=== PATIENT | female | born 1940 | race Caucasian/White ===

== ENCOUNTER 2020-07-27 07:48 | Outpatient (CLI) | payer MEDICARE, OTHER, SELFPAY ==
--- NOTE | ~2020-07-27 | XR_ITS ---
EXAMINATION: XR heel RT min 2V DATE: 07/27/2020 08:35 INDICATION: Right foot pain. TECHNIQUE: 2 views of right calcaneus on 3 radiographs were obtained. COMPARISON: None. FINDINGS: Bone alignment is normal. No fracture. Joint spaces are normal. There are enthesophytes at the posterior and plantar aspects of calcaneal tuberosity. IMPRESSION: 1. No fracture. Reviewed, dictated and finalized at location A. IMPRESSION: 1. No fracture.
[2020-07-27 08:20] LABS: Basophils Percent Auto 0.5 % (0.2-1.2); Eosinophils Absolute Auto 0.1 K/mm3 (0-0.3); Eosinophils Percent Auto 1.4 % (0-4.4); Hemoglobin 13.9 g/dL (12.0-15.0); Immature Granulocyte Absolute 0.02 K/mm3 (0.00-0.031); Immature Granulocyte Percent A 0.4 % (0-0.5); Lymphocytes Absolute Auto 1.59 K/mm3 (0.9-3.2); Lymphocytes Percent Auto 28.3 % (18.3-44.2); Mean Corpuscular HGB Conc 33.1 g/dl (32-36); Mean Corpuscular Hemoglobin 29.6 pg (26-34); Mean Corpuscular Volume 89.4 fl (80-100); Mean Platelet Volume 9.6 fl (7.4-10.4); Monocytes Absolute Auto 0.6 K/mm3 (0.1-0.6); Monocytes Percent Auto 9.8 % (2.6-8.5); Neutrophils Absolute Auto 3.3 K/mm3 (1.3-6.7); Neutrophils Percent Auto 59.6 % (45.5-73.1); Platelet Count Result 233 k/mm3 (150-375); Red Cell Distribution Width 13.8 % (11.5-14.5); White Blood Count 5.6 K/mm3 (4.5-10.0)
[2020-07-27 08:32] LABS: Alanine Aminotransferase 22 U/L (4-35); Albumin Level 4.4 g/dL (3.5-5.1); Alkaline Phosphatase 66 U/L (38-126); Anion Gap 6 mmol/L (8-16); Aspartate Amino Transferase 27 U/L (14-36); Bilirubin,Total 0.5 mg/dL (0.2-1.3); Blood Urea Nitrogen 28 mg/dL (7-17); Calcium 10.9 mg/dL (8.4-10.2); Carbon Dioxide 30 mmol/L (22-30); Chloride 105 mmol/L (98-107); Cholesterol 223 mg/dL (0-200); Estimated Glomerular Filt Rate > 60; Glucose 105 mg/dL (65-105); HDL Direct 67 mg/dL; Potassium 4.4 mmol/L (3.4-5.0); Sodium 141 mmol/L (137-145); Triglycerides 129 mg/dL (<150)
[2020-07-27 08:45] LABS: LDL Cholesterol Direct 100 mg/dL
[2020-07-27 09:01] LABS: Vitamin D 25 Hydroxy 32.7 ng/mL
[2020-07-27 09:38] LABS: Folic Acid 6.2 ng/mL (2.76->20)
[2020-07-27 11:49] LABS: Add Urine Microscopic? YES; Appearance Urine Clear (Clear); Bacteria Urine Trace /hpf; Bilirubin Urine Negative (Negative); Blood Urine 1+ (Negative); Color Urine Yellow (Yellow); Glucose Urine UA Negative (Negative); Ketones Urine Negative (Negative); Leukocyte Esterase Ur Trace LEU/UL (NEGATIVE); Mucus Urine Rare /lpf; Nitrate Urine Negative (Negative); Protein Urine Negative (Negative); RBC Urine 0-2 /hpf (0-2); Specific Grav Ur 1.023 (1.001-1.035); Squamous Epithelial Cell Urine Rare /hpf (Few); Transitional Epi Cells Urine Rare /hpf (None Seen); Urobilinogen Urine Negative mg/dL (<2.0)
[2020-07-27 18:03] LABS: Parathyroid Intact 57.2 pg/mL (7.5-53.5)
== END 2020-07-27 07:49 | disposition home or self-care (01) ==
PROVIDERS: PCP Nurse Practitioner Family; Visit Provider Nurse Practitioner Family
DX: M79.671 Pain in right foot (principal); R53.83 Other fatigue; E66.9 Obesity, unspecified; M81.0 Age-related osteoporosis without current pathological fracture; E83.52 Hypercalcemia
CPT/HCPCS: 36415; 73650; 80048; 80061; 80076; 81001; 82306; 82607; 82746; 83970; 84443; 85025

== ENCOUNTER 2020-08-15 08:35 | Outpatient (CLI) | payer MEDICARE, OTHER, SELFPAY ==
[2020-08-15 10:07] LABS: Creatinine Urine 55.7 mg/dL
[2020-08-15 11:00] LABS: Creatinine 24 Hour Urine 0.8 gm/24 (0.8-1.8); Total Volume 24 Hour Urine 1550 ml
[2020-08-19 07:32] LABS: Total Volume 1600 mL; Urine Calcium 14.1 mg/dL
== END 2020-08-15 08:36 | disposition home or self-care (01) ==
PROVIDERS: PCP Nurse Practitioner Family; Visit Provider Internal Medicine Endocrinology, Diabetes & Metabolism
DX: E21.3 Hyperparathyroidism, unspecified (principal); E83.52 Hypercalcemia
CPT/HCPCS: 81050; 82340; 82570

== ENCOUNTER 2020-09-22 08:07 | Outpatient (CLI) | payer MEDICARE, OTHER, SELFPAY ==
--- NOTE | ~2020-09-22 | DEXA_ITS ---
Bone Density Report Name: Jazz Pierson Age: 79 Sex: Female Ethnicity: White Date of : 1940 Indication: osteopenia; monitoring treatment; hyperparathyroidism; height loss; prior fracture; postmenopausal Referring Provider: Loida Shea Study: Bone densitometry was performed. Exam Date: September 22, 2020 Accession number: [id number] Bone Density: Region BMD T-score Z-score Classification AP Spine (L1, L4) 0.975 -0.6 2.2 Normal Femoral Neck (Left) 0.764 -0.8 1.6 Normal Total Hip (Left) 0.803 -1.1 1.0 Osteopenia Total Hip Bilateral Avg 0.809 -1.1 1.1 Osteopenia Femoral Neck (Right) 0.826 -0.2 2.2 Normal Total Hip (Right) 0.815 -1.0 1.1 Normal World Health Organization criteria for BMD impression classify patients as: Normal (T-score at or above -1.0), Osteopenia (T-score between -1.0 and -2.5), or Osteoporosis (T-score at or below -2.5). 10-year Fracture Risk: FRAX not reported because: Treated for osteoporosis Previous Exams: Region Exam Age BMD T-score BMD Change BMD Change Date g/cm2 vs Baseline vs Previous AP Spine(L1, L4) 09/22/2020 79 0.975 -0.6 0.092(10.5%)* 0.008(0.8%) 02/06/2017 76 0.967 -0.6 0.085(9.6%)* 0.085(9.6%)* 12/01/2014 74 0.882 -1.4 Total Hip(Left) 09/22/2020 79 0.803 -1.1 -0.033(-3.9%)* -0.025(-3.0%) 02/06/2017 76 0.828 -0.9 -0.008(-0.9%) -0.008(-0.9%) 12/01/2014 74 0.836 -0.9 Total Hip(Right) 09/22/2020 79 0.815 -1.0 0.007(0.9%) 0.028(3.6%)* 02/06/2017 76 0.787 -1.3 -0.021(-2.5%) -0.021(-2.5%) 12/01/2014 74 0.807 -1.1 *Denotes significance at 95% confidence level, LSC for AP Spine = 0.022 g/cm2, LSC for Total Hip = 0.027 g/cm2 Clinical Information Provided by Patient: Has had a low trauma fracture Is being treated for osteoporosis Has used the following medications: Reclast (i.e. zoledronate) Has the following medical conditions: Hyperparathyroidism Patient maximum height was 67 Menopause Age: 40 No regular weight bearing exercise Drinks caffeinated beverages Onset of menses at age 10 Number of children 3 Impression: The patient has low bone mass, based on the Left Total Hip T-score. The patient has risk factors, including: previous fracture. No significant bone loss was observed. Discussion: PATIENT UNDER TREATMENT WITH NO SIGNIFICANT BMD LOSS SINCE LAST EXAM. In an untreated patient, BMD typically declines with age. A lack of decline or gain is usually a sign th
== END 2020-09-22 08:08 | disposition home or self-care (01) ==
LOC: ANHIMG 08:09
PROVIDERS: PCP Nurse Practitioner Family; Visit Provider Internal Medicine Endocrinology, Diabetes & Metabolism
DX: E21.3 Hyperparathyroidism, unspecified (principal); Z78.0 Asymptomatic menopausal state; M85.852 Other specified disorders of bone density and structure, left thigh
CPT/HCPCS: 77080

== ENCOUNTER 2021-02-13 14:11 | Outpatient (CLI) | payer MEDICARE, OTHER, SELFPAY ==
--- NOTE | ~2021-02-13 | US_ITS ---
EXAMINATION: US venous doppler [facility] EXAM DATE: 02/13/2021 14:39 INDICATION: R60.0 - Localized edema. TECHNIQUE: Multiple grayscale, color flow and Doppler images of the left lower extremity deep venous system were obtained and reviewed. There is no prior study for comparison. FINDINGS: The left common femoral, femoral and profunda veins demonstrate normal color flow, respirat ory variation, augmentation and compressibility. Compressibility, color flow confirmed within the le ft popliteal, posterior tibial, peroneal, and greater saphenous veins. IMPRESSION: 1. No left lower extremity deep venous thrombosis. Reviewed, dictated and finalized at location B. TENDER
== END 2021-02-13 14:12 | disposition home or self-care (01) ==
LOC: ANHIMG 14:13
PROVIDERS: PCP Nurse Practitioner Family; Visit Provider Nurse Practitioner Family
DX: R60.0 Localized edema (principal)
CPT/HCPCS: 93971

== ENCOUNTER 2022-08-07 10:56 | Outpatient (CLI) | payer MEDICARE, SELFPAY ==
--- NOTE | 2022-08-07 11:13 | ECG_ITS ---
Measurements Intervals [place] Rate: 94 P: DC: 0 QRS: 8 QRSD: 77 T: 38 QT: 362 QTc: 454 Interpretive Statements ATRIAL FIBRILLATION WITH ABERRANT CONDUCTION OR VENTRICULAR PREMATURE COMPLEXES ABNORMAL RHYTHM ECG NO PREVIOUS ECG AVAILABLE FOR COMPARISON Electronically Signed On 08-07-2022 16:20:26 CDT by Marta Shultz M.D.
== END 2022-08-07 10:57 | disposition home or self-care (01) ==
PROVIDERS: PCP Nurse Practitioner Family; Visit Provider Nurse Practitioner Family
DX: I49.9 Cardiac arrhythmia, unspecified (principal); R94.31 Abnormal electrocardiogram [ECG] [EKG]
CPT/HCPCS: 93005

== ENCOUNTER 2022-10-09 07:10 | Outpatient (CLI) | payer MEDICARE, SELFPAY ==
--- NOTE | ~2022-10-09 | NM_ITS ---
EXAMINATION: NM omid stress w perfusion DATE: 10/09/2022 09:50 INDICATION: Other chest pain. Chest pressure. TECHNIQUE: Rest images were obtained following intravenous administration of 12.4 mCi Tc99m tetrofosm in (Myoview). The patient was infused intravenously with Lexiscan (regadenoson). Then, 34.7 mCi Tc99m tetrofosmin (Myoview) was administered intravenously, and stress images were obtained. Data was alysa nstructed into short axis and horizontal and vertical long axis SPECT images. Gated SPECT images were also obtained. COMPARISON: None. FINDINGS: There is no definite reversible or fixed perfusion abnormality to suggest ischemia or infar ction. There is no segmental wall motion abnormality. Left ventricular ejection fraction measures > 70%. IMPRESSION: 1. No definite ischemia or infarct. 2. Normal left ventricular ejection fraction measuring >70%. Reviewed, dictated and finalized at location A.
--- NOTE | 2022-10-09 07:31 | EST_ITS ---
Patient Info Name: Jazz Pierson Age: 81 years : 1940 Gender: Female Ht: 65 in Wt: 205 lbs BSA: 2.10 m2 Exam Date: 10/09/2022 8:18 AM Exam Location: [facility] Stress Patient Status: Outpatient Admit Date: 10/09/2022 Staff Ordering Physician: Kirk Flores DO Attending Provider: Kirk Flores DO Exercise Technologist: Ashly Gabriel RDCS Exercise Physician: Kirk Flores DO Exam Type: CA stress omid w NM Study Info Indications R07.9 - Chest pain, unspecified R06.00 - Dyspnea, unspecified A regadenoson stress test was performed. Summary 1. 1. Negative lexiscan stress test for ischemic ST changes by ECG criteria. 2. 2. Baseline hypertension. 3. 3. Nuclear scan to follow and will be reported separately. Please correlate with it. 4. 4. Patient informed of the above results. Protocol: Lexiscan Stress ECG Details Stage: REST Duration (min): 0 min : 43 sec HR (bpm): 64 SBP (mmHg): 152 DBP (mmHg): 86 Stage: REST Duration (min): 4 min : 36 sec HR (bpm): 66 SBP (mmHg): 152 DBP (mmHg): 86 Stage: STAGE 1 Duration (min): 1 min : 0 sec HR (bpm): 80 SBP (mmHg): 135 DBP (mmHg): 89 Stage: RECOVERY Duration (min): 1 min : 0 sec HR (bpm): 85 SBP (mmHg): 148 DBP (mmHg): 88 Stage: RECOVERY Duration (min): 2 min : 0 sec HR (bpm): 78 SBP (mmHg): 148 DBP (mmHg): 88 Stage: RECOVERY Duration (min): 3 min : 0 sec HR (bpm): 79 SBP (mmHg): 125 DBP (mmHg): 84 Stage: RECOVERY Duration (min): 3 min : 19 sec HR (bpm): 75 SBP (mmHg): 125 DBP (mmHg): 84 Rest HR: 66 bpm Peak HR: 87 bpm Rest Sys BP: 152 mmHg Peak Sys BP: 148 mmHg Max Pred HR: 137 bpm % Max Pred HR: 64 % Target HR: 116 bpm Max RPP: 12,876 bpm*mmHg Termination Reason: Completed protocol Cardiac Symptoms: Shortness of breath Total Time: 1 min : 0 sec Rest Ortez BP: 86 mmHg Peak Ortez BP: 88 mmHg Total Dose: 0.4 mg Resting ECG Sinus rhythm. Stress ECG No ST changes. Arrhythmias None. Report Signatures
--- NOTE | 2022-10-09 07:31 | ECHO_ITS ---
Patient Info Name: Jazz Pierson Age: 81 years : 1940 Gender: Female Ht: 65 in Wt: 205 lbs BSA: 2.10 m2 HR: 61 bpm BP: 157 / 80 mmHg Technical Quality: Fair Exam Date: 10/09/2022 9:30 AM Exam Location: [facility] Pulmonary Patient Status: Outpatient Admit Date: 10/09/2022 Staff Ordering Physician: Kirk Flores DO Crater And Packer: Ann Torres RDCS Attending Provider: Kirk Flores DO Referring Physician: Mark CHAPMAN; Exam Type: CA echo dop color flow w con Study Info Indications - chest pain Complete two-dimensional, color flow and Doppler transthoracic echocardiogram is performed with contrast to opacify the left ventricle and to improve the deliniation of the left ventricle endocardial borders. Contrast/Agitated Saline Contrast/Ag. Saline: Definity Amount: 2.00 ml Administered By: Ann Torres [facility] Existing IV Access: Yes New IV Access: Left Site Condition: IV removed Summary 1. Definity contrast administered improved wall motion interpretation. 2. Left ventricular chamber dimension is normal. 3. Left ventricular systolic function is normal, estimated at 60-65%. 4. The left ventricular diastolic function is grade I diastolic dysfunction. 5. E/e' 9 is minimally elevated. 6. There is moderate aortic valve sclerosis. 7. There is mild to moderate aortic valve stenosis with a peak velocity of 218.12 cm/s, mean gradient of 11 mmHg, and aortic valve area of 1.59 cm2. 8. There is trace aortic valve regurgitation. 9. The mitral valve has moderately calcified annulus. 10. There is mild mitral valve regurgitation. 11. There is trace tricuspid valve regurgitation. 12. No pulmonary hypertension, estimated pulmonary arterial systolic pressure is 30 mmHg. 13. There is trace pulmonic regurgitation. Left Ventricle E/e' 9 is minimally elevated. Definity contrast administered improved wall motion interpretation. Left ventricular chamber dimension is normal. Left ventricular systolic function is normal, estimated at 60-65%. The left ventricular diastolic function is grade I diastolic dysfunction. Right Ventricle Right ventricular chamber dimension is normal. Right ventricular systolic function is normal. Left Atria Left atrial chamber dimension is normal. Right Atria Right atrial chamber dimension is normal. Aortic Valve The aortic valve is trileaflet. There is moderate aortic valve sclerosis. There is mild to moderate aortic valve stenosis with a peak velocity of 218.12 cm/s, mean gradient of 11 mmHg, and aortic valve area of 1.59 cm2. There is trace aortic valve regurgitation. Pulmonic Valve There is trace pulmonic regurgitation. Mitral Valve The mitral valve has moderately calcified annulus. There is no mitral valve stenosis. There is mild mitral valve regurgitation. Tricuspid Valve There is trace tricuspid valve regurgitation. No pulmonary hypertension, estimated pulmonary arterial systolic pressure is 30 mmHg. Pericardium/Pleural There is no pericardial effusion. Inferior Vena Cava Normal inferior vena cava with >50% collapse upon inspiration consistent with normal right atrial pressure, 5 mmHg. Aorta The aortic root size at the sinus of Valsalva is normal. Left Ventricular Outflow Tract Name Value Normal LVOT 2D LVOT Diameter
[2022-10-09] MEDS: PERFLUTREN LIPID MICROSPHERES 1.5 ML VIAL DILUTED TO 10 ML TOTAL VOLUME IV PUSH (10:15)
--- NOTE | 2022-10-09 11:38 | IVDEFINITY ---
Prior to administration of IV Definity the patient was educated on the risks and benefits of the imaging enhancing agent including potential adverse side effects. The patient verbalized understanding. Allergies were verified. No exclusion criteria were identified and at least one of the following inclusion criteria were met: 1) physician request, 2) patient technically difficult to image (per the [place] [employer] of Echocardi[employer] guidelines of two or more segments not discernable within the apical view), or 3) questionable left ventricular function. ?
== END 2022-10-09 07:11 | disposition home or self-care (01) ==
PROVIDERS: PCP Nurse Practitioner Family; Visit Provider Internal Medicine Cardiovascular Disease
DX: R06.09 Other forms of dyspnea (principal); R07.89 Other chest pain; I34.0 Nonrheumatic mitral (valve) insufficiency
CPT/HCPCS: 78452; 93017; A9502; C8929; J2785; Q9957

== ENCOUNTER 2022-12-06 11:02 | Outpatient (CLI) | payer MEDICARE, SELFPAY ==
[2022-12-06 13:55] LABS: Albumin Level 4.5 g/dL (3.5-5.1); Anion Gap 9 mmol/L (8-16); Blood Urea Nitrogen 18 mg/dL (7-17); Calcium 10.8 mg/dL (8.4-10.2); Carbon Dioxide 24 mmol/L (22-30); Chloride 105 mmol/L (98-107); Estimated Glomerular Filt Rate > 60; Glucose 106 mg/dL (65-110); Potassium 4.3 mmol/L (3.4-5.0); Sodium 138 mmol/L (137-145)
[2022-12-06 14:01] LABS: Vitamin D 25 Hydroxy 33.9 ng/mL
[2022-12-06 14:03] LABS: Parathyroid Intact 53.5 pg/mL (7.5-53.5)
[2022-12-10 23:34] LABS: Vitamin D 1,25 (OH)2 Total 75 pg/mL (18-72); Vitamin D2 1,25 (OH)2 <8 pg/mL; Vitamin D3 1,25 (OH)2 75 pg/mL
[2022-12-15 17:17] LABS: Parathyroid Hormone Related Pr 10 pg/mL (11-20)
== END 2022-12-06 11:03 | disposition home or self-care (01) ==
LOC: ANHWCLAB 11:02
PROVIDERS: PCP Nurse Practitioner Family; Visit Provider Internal Medicine Endocrinology, Diabetes & Metabolism
DX: E67.3 Hypervitaminosis D (principal); M85.80 Other specified disorders of bone density and structure, unspecified site; E83.52 Hypercalcemia
CPT/HCPCS: 36415; 80069; 82306; 82652; 83519; 83970

== ENCOUNTER → 2022-12-12 10:37 | Outpatient (CLI) | payer MEDICARE, SELFPAY ==
--- NOTE | ~2022-12-12 | DEXA_ITS ---
Bone Density Report Name: KYLIE AMARO Age: 82 Sex: Female Ethnicity: White Date of : 1940 Indication: postmenopausal; screening for osteoporosis; height loss; rheumatoid arthritis; Referring Provider: Shelli Ko Study: Bone densitometry was performed. Exam Date: December 12, 2022 Accession number: [id number] Bone Density: Region BMD T-score Z-score Classification AP Spine (L1-L4) 1.297 2.3 5.1 Normal Femoral Neck (Left) 0.826 -0.2 2.3 Normal Total Hip (Left) 0.845 -0.8 1.5 Normal Femoral Neck (Right) 0.838 -0.1 2.4 Normal Total Hip (Right) 0.849 -0.8 1.5 Normal Total Hip Mean 0.847 -0.8 1.5 Normal World Health Organization criteria for BMD impression classify patients as: Normal (T-score at or above -1.0), Osteopenia (T-score between -1.0 and -2.5), or Osteoporosis (T-score at or below -2.5). 10-year Fracture Risk: FRAX not reported because: All T-scores for Spine Total, Hip Total, Femoral Neck at or above -1.0 Clinical Information Provided by Patient: Has rheumatoid arthritis Has used the following medications: Vitamin D Patient maximum height was 67 Menopause Age: 38 No regular weight bearing exercise Drinks caffeinated beverages Onset of menses at age 10 Number of children 3 Impression: The patient has normal bone mass. Discussion: BONE DENSITY IS ABOVE THE MINIMUM DESIRABLE LEVEL AT ALL SKELETAL SITES TESTED. This patient?s bone mineral density is above the minimum desirable level (T-score -1.0 or better) at all sites measured. The patient should follow a healthful lifestyle (good nutrition with adequate calcium and vitamin D, and appropriate weight-bearing exercise). Follow-Up: Consider repeating this study in 5 years or sooner if there is some new clinical indication. Reported by: CAROL on 12/12/2022 10:58:00 AM. Reviewed, dictated and finalized at location AJuan Luis REYNOSO
== END ==
PROVIDERS: PCP Internal Medicine Endocrinology, Diabetes & Metabolism; Visit Provider Internal Medicine Endocrinology, Diabetes & Metabolism
DX: M85.88 Other specified disorders of bone density and structure, other site (principal); E67.3 Hypervitaminosis D; E83.52 Hypercalcemia
CPT/HCPCS: 77080

== ENCOUNTER 2023-07-10 08:27 | Outpatient (CLI) | payer MEDICARE, SELFPAY ==
[2023-07-10 09:22] LABS: Alanine Aminotransferase 20 U/L (6-35); Albumin Level 4.8 g/dL (3.5-5.1); Alkaline Phosphatase 79 U/L (38-126); Aspartate Amino Transferase 31 U/L (14-36); Bilirubin,Total 0.9 mg/dL (0.2-1.3); Cholesterol 209 mg/dL (0-200); HDL Direct 58 mg/dL; Triglycerides 121 mg/dL (<150)
[2023-07-10 09:23] LABS: Albumin Level 4.8 g/dL (3.5-5.1); Anion Gap 7 mmol/L (4-12); Blood Urea Nitrogen 18 mg/dL (7-17); Calcium 10.1 mg/dL (8.4-10.2); Carbon Dioxide 32 mmol/L (22-30); Chloride 103 mmol/L (98-107); Estimated Glomerular Filt Rate > 60; Glucose 105 mg/dL (65-110); Potassium 4.2 mmol/L (3.4-5.0); Sodium 142 mmol/L (137-145)
[2023-07-10 09:33] LABS: LDL Cholesterol Direct 129 mg/dL
[2023-07-10 09:34] LABS: Parathyroid Intact 123.4 pg/mL (7.5-53.5)
[2023-07-10 09:45] LABS: Vitamin D 25 Hydroxy 46.2 ng/mL
[2023-07-11 12:54] LABS: Ionized Calcium 5.2 mg/dL (4.7-5.5)
[2023-07-12 02:29] LABS: Protein, Total 7.1 g/dL (6.1-8.1)
[2023-07-12 08:19] LABS: Creatinine, Random Urine 137 mg/dL (20-275); Total Protein/Creatinine Ratio 190 mg/g creat (24-184)
[2023-07-12 10:24] LABS: Albumin 4.2 g/dL (3.8-4.8); Alpha 1 Globulin 0.3 g/dL (0.2-0.3); Alpha 2 Globulin 0.7 g/dL (0.5-0.9); Beta 1 Globulin 0.5 g/dL (0.4-0.6)
[2023-07-15 10:32] LABS: Vitamin D 1,25 (OH)2 Total 57 pg/mL (18-72); Vitamin D2 1,25 (OH)2 <8 pg/mL; Vitamin D3 1,25 (OH)2 57 pg/mL
== END 2023-07-10 08:28 | disposition home or self-care (01) ==
PROVIDERS: PCP Nurse Practitioner Family; Visit Provider Internal Medicine Endocrinology, Diabetes & Metabolism
DX: E83.52 Hypercalcemia (principal); I48.91 Unspecified atrial fibrillation; R53.83 Other fatigue; R79.89 Other specified abnormal findings of blood chemistry
CPT/HCPCS: 36415; 80061; 80069; 80076; 82306; 82330; 82570; 82652; 83970; 84155; 84156; 84165; 84166

== ENCOUNTER 2023-07-12 09:32 | Outpatient (CLI) | payer MEDICARE, SELFPAY ==
[2023-07-12 10:43] LABS: Creatinine Urine 94.3 mg/dL
[2023-07-12 11:56] LABS: Creatinine 24 Hour Urine 0.8 gm/24 (0.8-1.8); Total Volume 24 Hour Urine 900 ml
== END 2023-07-12 09:33 | disposition home or self-care (01) ==
PROVIDERS: PCP Nurse Practitioner Family; Visit Provider Internal Medicine Endocrinology, Diabetes & Metabolism
DX: E83.52 Hypercalcemia (principal)
CPT/HCPCS: 81050; 82340; 82570

== ENCOUNTER 2024-01-22 08:27 | Outpatient (CLI) | payer MEDICARE, SELFPAY ==
--- NOTE | 2024-01-22 09:04 | ECHO_ITS ---
Patient Info Name: Jazz Pierson Age: 83 years : 1940 Gender: Female Ht: 65 in Wt: 190 lbs BSA: 2.02 m2 HR: 88 bpm BP: 136 / 81 mmHg Heart Rhythm: Atrial Fibrillation Technical Quality: Fair Exam Date: 01/22/2024 9:28 AM Exam Location: Echo Lab Patient Status: Outpatient Admit Date: 01/22/2024 Staff Ordering Physician: Kirk Flores DO Process Equipment Operator: Yung Ragsdale RDCS Attending Provider: Kirk Flores DO Referring Physician: Mark CHAPMAN; Exam Type: CA echo doppler color flow Study Info Indications I35.0 - Nonrheumatic aortic (valve) stenosis Complete two-dimensional, color flow and Doppler transthoracic echocardiogram is performed. Summary 1. Complete two-dimensional, color flow and Doppler transthoracic echocardiogram is performed. 2. Left ventricular chamber dimension is normal. 3. Left ventricular systolic function is normal, estimated at 65-70%. 4. The left ventricular diastolic function is abnormal. 5. E/e' 14 is mildly elevated. 6. Atrial fibrillation. 7. Left atrial chamber dimension is moderately enlarged. 8. Right atrial chamber dimension is moderately enlarged. 9. There is moderate aortic valve sclerosis. 10. There is mild aortic valve stenosis with a peak velocity of 245 cm/s, mean gradient of 8 mmHg, and aortic valve area of 1.6 cm2. 11. There is mild aortic valve regurgitation. 12. The mitral valve has severely calcified annulus. 13. There is mild to moderate mitral valve regurgitation. 14. There is mild to moderate tricuspid valve regurgitation. 15. Mild pulmonary hypertension, estimated pulmonary arterial systolic pressure is 42 mmHg. 16. There is trace pulmonic regurgitation. Left Ventricle E/e' 14 is mildly elevated. Atrial fibrillation. Left ventricular chamber dimension is normal. Left ventricular systolic function is normal, estimated at 65-70%. The left ventricular diastolic function is abnormal. Right Ventricle Right ventricular chamber dimension is normal. Right ventricular systolic function is normal. Left Atria Left atrial chamber dimension is moderately enlarged. Right Atria Right atrial chamber dimension is moderately enlarged. Aortic Valve The aortic valve is trileaflet. There is moderate aortic valve sclerosis. There is mild aortic valve stenosis with a peak velocity of 245 cm/s, mean gradient of 8 mmHg, and aortic valve area of 1.6 cm2. There is mild aortic valve regurgitation. Pulmonic Valve There is trace pulmonic regurgitation. Mitral Valve The mitral valve has severely calcified annulus. There is no mitral valve stenosis. There is mild to moderate mitral valve regurgitation. Tricuspid Valve There is mild to moderate tricuspid valve regurgitation. Mild pulmonary hypertension, estimated pulmonary arterial systolic pressure is 42 mmHg. Pericardium/Pleural There is no pericardial effusion. Inferior Vena Cava Normal inferior vena cava with >50% collapse upon inspiration consistent with normal right atrial pressure, 5 mmHg. Aorta The aortic root size at the sinus of Valsalva is normal. Left Ventricular Outflow Tract Name Value Normal LVOT 2D LVOT Diameter 2.0 cm LVOT Doppler LVOT Peak Gradient 4 mmHg LVOT Mean Gradient 2 mmHg LVOT VTI 19 cm LVOT VTI/AV VTI Ratio 0.5 LVOT Stroke Volume 59 ml LVOT CO 4.2 l/min LVOT CI 2.1 l/min/m2 Pulmonic Valve Name Value Normal PV Doppler PV Peak Gradient 2 mmHg PV Regurgitation Doppler OR Peak End Diastolic Velocity 116 cm/s Mitral Valve Name Value Normal MV Doppler MV Decel [place] 627 cm/s2 MV PHT 55 ms MV Area (PHT) 4.0 cm2 4.0-5.0 MV Diastolic Function MV E Peak Velocity 119 cm/s MV A Peak Velocity 1 cm/s MV E/A 193.0 MV Decel Time 190 ms Tricuspid Valve Name Value Normal TV Regurgitation Doppler TR Peak Velocity 304 cm/s TR Peak Gradient 37 mmHg Estimated PAP/RSVP RA Pressure 5 mmHg <=5 PA Systolic Pressure 42 mmHg <36 RV Systolic Pressure 42 mmHg <36 Aorta Name Value Normal Ascending Aorta Ao Root Diameter (MM) 2.7 cm Ao Root Diam Index (MM) 1.3 cm/m2 Aortic Valve Name Value Normal AV Doppler AV Peak Velocity 245 cm/s AV Peak Gradient 24 mmHg AV Mean Gradient 8 mmHg AV VTI 37 cm AV Area (Cont Eq VTI) 1.6 cm2 >=3.0 AV Area (Cont Eq Edgar) 1.3 cm2 AV Regurgitation 2D LVOT Area 3.1 cm2 AV Regurgitation Doppler AR Decel Time 2,282 ms AR Decel [place] 177 cm/s2 AR PHT 662 ms Ventricles Name Value Normal LV Dimensions 2D/MM IVS Diastolic Thickness (2D) 1.0 cm 0.6-1.0 IVS Diastole Thickness (MM) 0.9 cm 0.6-0.9 LVID Diastole (2D) 4.6 cm 3.8-5.2 LVID Diastole (MM) 4.6 cm 3.8-5.2 LVIW Diastolic Thickness (2D) 0.9 cm 0.6-0.9 LVIW Diastolic Thickness (MM) 0.9 cm 0.6-0.9 LVID Systole (2D) 2.7 cm 2.2-3.5 LVID Systole (MM) 3.5 cm 2.2-3.5 LVOT Diameter 2.0 cm LV Mass (2D Cubed) 150.60 g 67.00-162.00 LV Mass Index (2D Cubed) 75 g/m2 43-95 Relative Wall Thickness (2D) 0.40 LV Mass (MM Cubed) 142.89 g 67.00-162.00 LV Mass Index (MM Cubed) 71 g/m2 43-95 Relative Wall Thickness (MM) 0.41 LV Fractional Shortening/Ejection Fraction 2D/MM LV Fractional Shortening (2D) 41 % 27-45 LV Fractional Shortening (MM) 24 % 27-45 LV EF (MM Teicholz) 48 % 54-74 LV EF (2D Teicholz) 71 % 54-74 LV Diastolic Volume (4C MOD) 52 ml LV EF (4C MOD) 69 % LV Diastolic Volume (2C MOD) 34 ml LV EF (2C MOD) 60 % LV Diastolic Volume (BP MOD) 46 ml 46-106 LV Diastolic Volume Index (BP MOD) 23 ml/m2 29-61 LV Systolic Volume (BP MOD) 15 ml 14-42 LV Systolic Volume Index (BP MOD) 7 ml/m2 8-24 LV EF (BP MOD) 68 % 54-74 LV Diastolic Length (4C) 7.0 cm LV Systolic Length (4C) 5.2 cm LV Stroke Volume (4C MOD) 36 ml Atria Name Value Normal LA Dimensions LA Dimension (MM) 5.5 cm 2.7-3.8 LA Volume (4C A-L) 88 ml LA Volume (BP A-L) 81 ml RA Dimensions RA Area (4C) 25.5 cm2 <=18.0 Report Signatures
== END 2024-01-22 08:28 | disposition home or self-care (01) ==
PROVIDERS: PCP Nurse Practitioner Family; Visit Provider Internal Medicine Cardiovascular Disease
DX: I48.91 Unspecified atrial fibrillation (principal); I08.1 Rheumatic disorders of both mitral and tricuspid valves; I27.20 Pulmonary hypertension, unspecified; I37.1 Nonrheumatic pulmonary valve insufficiency; I35.0 Nonrheumatic aortic (valve) stenosis
CPT/HCPCS: 93306

== ENCOUNTER 2024-02-03 10:24 | Outpatient (CLI) | payer MEDICARE, SELFPAY ==
[2024-02-03 11:34] LABS: Basophils Percent Auto 0.5 % (0.2-1.2); Eosinophils Absolute Auto 0.1 K/mm3 (0-0.3); Eosinophils Percent Auto 0.9 % (0-4.4); Hematocrit 40.4 % (37.0-47.0); Hemoglobin 13.1 g/dL (12.0-15.0); Immature Granulocyte Absolute 0.02 K/mm3 (0.00-0.031); Immature Granulocyte Percent A 0.3 % (0-0.5); Lymphocytes Absolute Auto 1.63 K/mm3 (0.9-3.2); Lymphocytes Percent Auto 27.8 % (18.3-44.2); Mean Corpuscular HGB Conc 32.4 g/dl (32-36); Mean Corpuscular Volume 92.4 fl (80-100); Monocytes Absolute Auto 0.6 K/mm3 (0.1-0.6); Monocytes Percent Auto 9.4 % (2.6-8.5); Neutrophils Absolute Auto 3.6 K/mm3 (1.3-6.7); Neutrophils Percent Auto 61.1 % (45.5-73.1); Platelet Count Result 216 k/mm3 (150-375); Red Blood Count 4.37 M/mm3 (4.2-5.4); Red Cell Distribution Width 13.8 % (11.5-14.5); White Blood Count 5.9 K/mm3 (4.5-10.0)
[2024-02-03 11:39] LABS: Add Urine Microscopic? NO; Appearance Urine Clear (Clear); Bilirubin Urine Negative (Negative); Blood Urine Negative (Negative); Color Urine Yellow (Yellow); Glucose Urine UA Negative (Negative); Ketones Urine Negative (Negative); Leukocyte Esterase Ur Negative LEU/UL (Negative); Nitrate Urine Negative (Negative); Protein Urine Negative (Negative); Urobilinogen Urine 0.2 mg/dL (<2.0); pH Urine 5.5 (5.0-9.0)
[2024-02-03 11:46] LABS: Alanine Aminotransferase 25 U/L (6-35); Albumin Level 4.2 g/dL (3.5-5.1); Alkaline Phosphatase 63 U/L (38-126); Anion Gap 5 mmol/L (4-12); Aspartate Amino Transferase 35 U/L (14-36); Bilirubin,Total 0.8 mg/dL (0.2-1.3); Blood Urea Nitrogen 21 mg/dL (7-17); Carbon Dioxide 33 mmol/L (22-30); Chloride 100 mmol/L (98-107); Cholesterol 186 mg/dL (0-200); Estimated Glomerular Filt Rate > 60; Glucose 98 mg/dL (65-110); HDL Direct 59 mg/dL; Potassium 3.3 mmol/L (3.4-5.0); Sodium 138 mmol/L (137-145); Triglycerides 145 mg/dL (<150)
[2024-02-03 11:57] LABS: LDL Cholesterol Direct 88 mg/dL
[2024-02-03 12:16] LABS: Thyroid Stimulating Hormone 0.783 uIU/mL (0.465-4.680)
== END 2024-02-03 10:25 | disposition home or self-care (01) ==
PROVIDERS: PCP Nurse Practitioner Family; Visit Provider Nurse Practitioner Family
DX: R60.0 Localized edema (principal); I48.91 Unspecified atrial fibrillation; R53.83 Other fatigue; R06.09 Other forms of dyspnea; E78.2 Mixed hyperlipidemia
CPT/HCPCS: 36415; 80053; 80061; 81003; 84443; 85025

== ENCOUNTER 2024-02-21 09:34 | Outpatient (CLI) | payer MEDICARE, SELFPAY ==
[2024-02-21 10:36] LABS: Anion Gap 3 mmol/L (4-12); Blood Urea Nitrogen 20 mg/dL (7-17); Calcium 10.4 mg/dL (8.4-10.2); Carbon Dioxide 33 mmol/L (22-30); Chloride 103 mmol/L (98-107); Estimated Glomerular Filt Rate > 60; Glucose 98 mg/dL (65-110); Potassium 3.8 mmol/L (3.4-5.0); Sodium 139 mmol/L (137-145)
== END 2024-02-21 09:35 | disposition home or self-care (01) ==
LOC: ANHLAB 09:35
PROVIDERS: PCP Nurse Practitioner Family; Visit Provider Nurse Practitioner Family
DX: E87.6 Hypokalemia (principal)
CPT/HCPCS: 36415; 80048

== ENCOUNTER 2024-07-14 09:27 | Outpatient (CLI) | payer MEDICARE, SELFPAY ==
--- OUTSIDE RECORDS SUMMARY | 2024-07-14 09:32 | XMS_ITS | Clinical Summary ---
Author Organization [facility] Address [address] [place] [address] Care Team Providers Care Composing Machine Operator/Tender Name Role Phone Unavailable Primary Care Provider Unavailabl e Source Comments [facility],non-owned Affiliates and Associated Physician Practices is amultiple site organization consisting of ambulatory clinics and hospital sitesin [place], [place], [place] and [place]. This disclosure is being madepursuant to the Care Everywhere program and may not contain all information available regarding this patient. Last updated 17.[facility] [employer] Social History Tobacco Use Types Packs/Day Years Used Date Smoking Tobacco: Never Assessed Comments Unknown Sex and Gender Information Value Date Recorded Sex Assigned at Not on file Legal Sex Female 1:42 PM [employer]RILL ASS[employer] Gender Identity Not on file Sexual Orientation Not on file Plan of Treatment Health Maintenance Due Date Last Done Comments BONE DENSITY TESTING 1940 DTAP/TDAP/TD VACCINES (1 - Tdap) 1957 PNEUMOCOCCAL VACCINE 50+ (1 of 1 - PCV) 1988 ZOSTER VACCINE (1 of 2) 1988 Respiratory Syncytial Virus (RSV) Vaccine Pt: or over 60 yrs (1 - 1-dose 75+ series) 2013 COVID-19 VACCINE ( - 2023-2 5 season) 2023 DEPRESSION SCREENING 02/19/2024 INFLUENZA VACCINE (Season Ended) 2024 HEPATITIS B VACCINE Aged Out No longe r eligible based on patient's age to complete this topic HIB VACCINE Aged Out No longer eligi ble based on patient's age to complete this topic HPV VACCINE Aged Out No longer eligi ble based on patient's age to complete this topic MENINGOCOCCAL (Group B) VACC INE SHARED DECISION-MAKING Aged Out No longer eligibl e based on patient's age to complete this topic MENINGOCOCCAL GROUPS A/C/Y/W VACCINE Aged Out No longer eligible b ased on patient's age to complete this topic
[2024-07-14 10:43] LABS: Albumin Level 4.6 g/dL (3.5-5.1); Anion Gap 7 mmol/L (4-12); Blood Urea Nitrogen 20 mg/dL (7-17); Calcium 10.4 mg/dL (8.4-10.2); Carbon Dioxide 33 mmol/L (22-30); Chloride 99 mmol/L (98-107); Estimated Glomerular Filt Rate > 60; Glucose 84 mg/dL (65-110); Phosphorus 2.8 mg/dL (2.5-4.5); Potassium 3.6 mmol/L (3.4-5.0); Sodium 139 mmol/L (137-145)
[2024-07-14 10:54] LABS: Parathyroid Intact 49.2 pg/mL (14.5-75.2)
[2024-07-14 11:09] LABS: Vitamin D 25 Hydroxy 40.5 ng/mL
[2024-07-15 11:39] LABS: Ionized Calcium 5.3 mg/dL (4.7-5.5)
== END 2024-07-14 09:28 | disposition home or self-care (01) ==
LOC: ANHLAB 09:28
PROVIDERS: PCP Nurse Practitioner Family; Visit Provider Internal Medicine Endocrinology, Diabetes & Metabolism
DX: E83.52 Hypercalcemia (principal); R79.89 Other specified abnormal findings of blood chemistry
CPT/HCPCS: 36415; 80069; 82306; 82330; 83970

== ENCOUNTER 2025-01-26 08:31 | Outpatient (CLI) | payer MEDICARE, SELFPAY ==
[2025-01-26 09:01] LABS: Hematocrit 40.0 % (37.0-47.0); Hemoglobin 13.2 g/dL (12.0-15.0); Immature Granulocyte Percent A 0.5 % (0-0.5); Lymphocytes Absolute Auto 1.33 K/mm3 (0.9-3.2); Mean Corpuscular HGB Conc 33.0 g/dl (32-36); Mean Corpuscular Hemoglobin 30.9 pg (26-34); Mean Corpuscular Volume 93.7 fl (80-100); Nucleated Red Blood Cells Absolute Auto 0.000 K/mm3 (0.0-0.012); Nucleated Red Blood Cells Perc 0.0 % (0.0-0.2); Platelet Count Result 194 k/mm3 (150-375); Red Blood Count 4.27 M/mm3 (4.2-5.4); White Blood Count 5.6 K/mm3 (4.5-10.0)
[2025-01-26 09:30] LABS: Alanine Aminotransferase 23 U/L (6-35); Albumin Level 4.3 g/dL (3.5-5.1); Alkaline Phosphatase 67 U/L (38-126); Anion Gap 4 mmol/L (4-12); Aspartate Amino Transferase 38 U/L (14-36); Bilirubin,Total 0.9 mg/dL (0.2-1.3); Blood Urea Nitrogen 16 mg/dL (7-17); Calcium 10.2 mg/dL (8.4-10.2); Carbon Dioxide 30 mmol/L (22-30); Chloride 102 mmol/L (98-107); Cholesterol 179 mg/dL (0-200); Estimated Glomerular Filt Rate > 60; Glucose 92 mg/dL (65-110); HDL Direct 58 mg/dL; Potassium 3.7 mmol/L (3.4-5.0); Sodium 136 mmol/L (137-145); Total Protein 7.3 g/dL (6.3-8.2); Triglycerides 95 mg/dL (<150)
[2025-01-26 09:53] LABS: Thyroid Stimulating Hormone Reflex 0.994 uIU/mL (0.465-4.68)
== END 2025-01-26 08:32 | disposition home or self-care (01) ==
PROVIDERS: PCP Nurse Practitioner Family; Visit Provider Nurse Practitioner Family
DX: R53.83 Other fatigue (principal); Z13.6 Encounter for screening for cardiovascular disorders; J44.9 Chronic obstructive pulmonary disease, unspecified; Z13.0 Encounter for screening for diseases of the blood and blood-forming organs and certain disorders involving the immune mechanism
CPT/HCPCS: 36415; 80053; 80061; 84443; 85025